=== PATIENT | female | born 1960 | race Caucasian/White ===

== ENCOUNTER 2023-06-11 12:53 | Emergency (ER) | payer BC ==
[~2023-06-11] VITALS: Ht 157.5 cm; Wt 97.5 kg
[2023-06-11] MEDS ORDERED: IBUPROFEN 400 MG TABLET ONE (13:31)
[2023-06-11] MEDS: IBUPROFEN 400 MG TABLET PO ONE (13:35)
[2023-06-11 14:13] VITALS: BP 140/68; TEMP 98.2; O2SAT 95
== END 2023-06-11 14:17 | disposition home or self-care (01) ==
LOC: ER 12:55
DX: M25.561 Pain in right knee (principal); E11.9 Type 2 diabetes mellitus without complications
CPT/HCPCS: 73564-TC